=== PATIENT | male | born 1990 | race Two or more races ===

== ENCOUNTER 2018-10-04 20:09 | Emergency (ER) | payer OTHER ==
[~2018-10-04] VITALS: Ht 167.6 cm; Wt 77.1 kg
[2018-10-05] MEDS ORDERED: TAMS0.4C PO (04:13)
[2018-10-05] MEDS ORDERED: KETO10TA2 PO (04:13)
[2018-10-05] MEDS ORDERED: PERCOCET 5-3251 EACH PO (04:13)
[2018-10-05] MEDS ORDERED: URIN D.S. TABL1 EACH PO (04:13)
== END 2018-10-05 04:14 | disposition home or self-care (01) ==
LOC: ER 20:09
DX: N20.2 Calculus of kidney with calculus of ureter (principal); R10.11 Right upper quadrant pain